=== PATIENT | female | born 1995 | race Caucasian/White ===

== ENCOUNTER 2020-09-20 16:24 | Observation (INO) | payer OTHER, SELFPAY ==
--- NOTE | 2020-09-20 16:24 | OBADM ---
This patient, JED POOL, admitted to the OB room Labor/Delivery/Recovery 105 for observation. Patient/family oriented to hospital policies and general routines including ID bracelet, bed and alarms, visiting hours, pain management, procedures, bathroom and other care routines, personal items, smoking policy, room service/diet, and visiting hours. Patient/Family are encouraged to report perceived risks to care and to ask questions if they do not understand what they are told or what they should do.
[2020-09-20 16:40] VITALS: TEMP 36.7; BMI 32.8
[2020-09-20 16:43] VITALS: BP 127/70; PULSE 75
[2020-09-20 16:45] VITALS: BP 127/74; PULSE 79
[2020-09-20 17:00] VITALS: BP 129/77; PULSE 79
[2020-09-20 17:15] VITALS: BP 123/77; PULSE 65
[2020-09-20 17:27] LABS: Add Urine Microscopic? YES; Appearance Urine Clear (Clear); Bacteria Urine Trace /hpf; Bilirubin Urine Negative (Negative); Blood Urine 1+ (Negative); Color Urine Straw (Yellow); Glucose Urine UA Negative (Negative); Ketones Urine Negative (Negative); Leukocyte Esterase Ur Negative LEU/UL (Negative); Mucus Urine Rare /lpf; Nitrate Urine Negative (Negative); Protein Urine Negative (Negative); RBC Urine 0-2 /hpf (0-2); Specific Grav Ur 1.008 (1.001-1.035); Urobilinogen Urine Negative mg/dL (<2.0); WBC Urine 0-3 /hpf
[2020-09-20 17:30] VITALS: BP 130/74; PULSE 77
--- NOTE | 2020-10-01 10:05 | PM.OBTRLD ---
OB - Triage/Final Diagnosis Evaluation Laboratory results: Laboratory Tests 09/20/20 17:18 Urine Color Straw Urine Appearance Clear Urine pH 6.0 Ur Specific [place] 1.008 Urine Protein Negative Urine Glucose (UA) Negative Urine Ketones Negative Ur Blood (Man) 1+ H Urine Nitrate Negative Urine Bilirubin Negative Urine Urobilinogen Negative Leukocyte Esterase Rfl Negative Urine RBC 0-2 Urine WBC 0-3 Urine Bacteria Trace Urine Mucus Rare Final Diagnosis (1) Vulvovaginal candidiasis: Code(s): B37.3 - Candidiasis of vulva and vagina Status: Acute
== END 2020-09-20 17:52 | disposition home or self-care (01) ==
PROVIDERS: Admitting Provider Obstetrics & Gynecology; Visit Provider Obstetrics & Gynecology
DX: O98.819 Other maternal infectious and parasitic diseases complicating pregnancy, unspecified trimester (principal); B37.3 Candidiasis of vulva and vagina; Z3A.00 Weeks of gestation of pregnancy not specified
CPT/HCPCS: 81001; 84112; G0378; G0379

== ENCOUNTER 2022-11-20 12:41 | Emergency (ER) | payer OTHER, SELFPAY ==
[2022-11-20 12:56] VITALS: BP 131/81; PULSE 81; RESP 16; TEMP 37; O2SAT 98
--- NOTE | 2022-11-20 13:50 | ED.ABDPAIN ---
HPI - Abdominal Pain General Chief Complaint: Abdominal Pain Stated Complaint: Sinus/Right Side Pain Time Seen by Provider: 11/20/22 13:10 Source: patient Mode of arrival: ambulatory Limitations: no limitations History of Present Illness HPI narrative: Mckayla is a 27-year-old female patient presenting to the clinic today with complaints of sinus congestion and right-sided upper abdominal pain. She reports that she has had symptoms for approximately 1 week. States that she has had nausea, vomiting, and diarrhea as well. States that this has gone through the house however her symptoms have lasted longer than everyone else's. States she developed right upper quadrant abdominal pain this morning. States the pain is sharp and is only painful with movement. Last bowel movement was diarrhea this morning. Last menstrual period was 12 days ago. She denies any urinary symptoms. Related Data Home Medications Medication Instructions Recorded Confirmed No Home Medications 11/20/22 11/20/22 Allergies Allergy/AdvReac Type Severity Reaction Status Date / Time No Known Allergies Allergy Verified 11/20/22 13:07 Review of Systems Review of Systems: Pertinent positives per HPI. Patient denies any fever, chills, rash, headache, visual changes, dizziness, cough, shortness of breath, chest pain, palpitations, constipation, or any urinary issues. PMFSH Comments At the time of my signature, I reviewed and agree with the nursing past medical, surgical, social, and family history. There is no relevant family history pertinent to the patient complaint. Exam Narrative: General: Well-developed, well nourished, in no apparent distress Head: Normocephalic, atraumatic Eyes: Pupils equally round and reactive to light bilaterally, EOM intact, sclera and conjunctive clear, no discharge, lids normal Ears: TMs intact and clear, ear canals clear, no drainage, grossly hearing normal. Nose: Nares patent, clear nasal discharge, no inflammation, no sinus tenderness. Mouth: Oral pharynx without lesions or masses, good dentition, MMM. Oropharynx mildly red Neck: Supple, trachea midline, no enlargement of anterior or posterior cervical nodes, no thyroid masses or goiter palpable. Cardio: Regular rate and rhythm, s1 and s2 normal, no murmur appreciated. Resp: Clear to auscultation bilaterally, no rhonchi, rales, wheezing or rubs Abdomen: Soft, nondistended, bowel sounds present all 4 quadrants, nontender to palpation, no organomegaly, no CVAT tenderness Course Course Emergency Course: Portions of this record may have been created with voice recognition software. Level of Care: Express Care Visit Vital Signs Vital signs: Vital Signs Temperature 37.0 C 11/20/22 12:56 Pulse Rate 81 11/20/22 12:56 Respiratory Rate 16 11/20/22 12:56 Blood Pressure 131/81 11/20/22 12:56 Pulse Oximetry 98 11/20/22 12:56 Oxygen Delivery Room Air 11/20/22 12:56 Temperature 37.0 C 11/20/22 12:56 Pulse Rate 81 11/20/22 12:56 Respiratory Rate 16 11/20/22 12:56 Blood Pressure 131/81 11/20/22 12:56 Pulse Oximetry 98 11/20/22 12:56 Oxygen Delivery Room Air 11/20/22 12:56 Vital signs reviewed MDM - Abdominal Pain MDM Narrative Medical decision making narrative: At the time of visit patient is resting comfortably on the exam table. Urinalysis was performed that showed trace of ketones otherwise normal. COVID, flu, strep were all negative in the clinic today. I suspect patient has viral gastroenteritis/URI/abdominal wall pain. Offered to send the patient to the ED to determine other etiology of abdominal pain and she declined at this time. Supportive measures were discussed with the patient she voiced understanding discharge instructions and agrees to treatment plan. Lab Data Labs: Lab Results 11/20/22 Range/Units 13:30 POC SARS CoV-2 Ag Negative (Negative) Influenza A Screen Negative
== END 2022-11-20 13:55 | disposition home or self-care (01) ==
PROVIDERS: Emergency Provider Nurse Practitioner Family; PCP Family Medicine Adolescent Medicine
DX: K52.9 Noninfective gastroenteritis and colitis, unspecified (principal); J06.9 Acute upper respiratory infection, unspecified; R10.11 Right upper quadrant pain; Z20.822 Contact with and (suspected) exposure to COVID-19
CPT/HCPCS: 81003; 87081; 87426; 87804; 87880; 99213; C9803; G0463

== ENCOUNTER 2022-12-14 10:03 | Emergency (ER) | payer OTHER, SELFPAY ==
[2022-12-14 10:11] VITALS: BP 115/68; PULSE 75; RESP 18; TEMP 36.7; O2SAT 100
--- NOTE | 2022-12-14 10:24 | ED.EYEPROB ---
HPI - Eye Problem General Chief complaint: Eye Problems Stated complaint: Eyes Irritation Time Seen by Provider: 12/14/22 10:15 Source: patient Mode of arrival: ambulatory Limitations: no limitations History of Present Illness HPI Narrative: Mckayla is a 27-year-old female patient presenting to the clinic today with complaints bilateral eye irritation. She reports that the right eye has been bothering her x2 days and now it is spreading to the left eye. Her visual acuity is within normal limits in the clinic today. She denies any known of any foreign body or injury to the eyes. Is having some yellow mucopurulent discharge coming from the eye. Has tried taking her sister's polymyxin eye drops without relief Related Data Allergies Allergy/AdvReac Type Severity Reaction Status Date / Time No Known Allergies Allergy Verified 12/14/22 10:10 Review of Systems Review of Systems: Pertinent positives per HPI. Patient denies any fever, chills, rash, headache, visual changes, dizziness, cough, runny nose, sore throat, shortness of breath, chest pain, palpitations, nausea, vomiting, diarrhea, constipation, abdominal pain, or any urinary issues. PMFSH Surgical History Surgical History History of surgery on arm left arm compound fracture Family History Family History Mother Depression Father Depression Family history of alcohol abuse Family history of thyroid disease Hypertension Grandparent Family history of alcohol abuse Grandparent Asthma Social History Social History Smoking status: Current every day smoker (vaping) Tobacco type: e-cigarettes/vaping Alcohol intake: current Alcohol use details: once every couple of weeks Substance use: never Living arrangements: with family Additional living arrangements comments: and child (age 2) Occupation/Education: occupation 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 There is no relevant family history pertinent to the patient complaint. Exam Narrative: General: Well-developed, well nourished, in no apparent distress Head: Normocephalic, atraumatic Eyes: Pupils equally round and reactive to light bilaterally, EOM intact, sclera and conjunctive injected with yellow mucopurulent discharge, right lids swollen, left lids normal Ears: TMs intact and clear, ear canals clear, no drainage, grossly hearing normal. Nose: Nares patent, no discharge, no inflammation, no sinus tenderness. Mouth: Oropharynx without lesions or masses, good dentition, MMM. Neck: Supple, trachea midline, no enlargement of anterior or posterior cervical nodes, no thyroid masses or goiter palpable. Cardio: Regular rate and rhythm, s1 and s2 normal, no murmur appreciated. Resp: Clear to auscultation bilaterally anteriorly and posteriorly, no rhonchi, rales, wheezing or rubs Course Course Emergency Course: Portions of this record may have been created with voice recognition software. Level of Care: Express Care Visit Vital Signs Vital signs: Vital Signs Temperature 36.7 C 12/14/22 10:11 Pulse Rate 75 12/14/22 10:11 Respiratory Rate 18 12/14/22 10:11 Blood Pressure 115/68 12/14/22 10:11 Pulse Oximetry 100 12/14/22 10:11 Oxygen Delivery Room Air 12/14/22 10:11 Temperature 36.7 C 12/14/22 10:11 Pulse Rate 75 12/14/22 10:11 Respiratory Rate 18 12/14/22 10:11 Blood Pressure 115/68 12/14/22 10:11 Pulse Oximetry 100 12/14/22 10:11 Oxygen Delivery Room Air 12/14/22 10:11 Vital signs reviewed MDM - Eye Problem MDM Narrative Medical decision making narrative: At the time of visit patient is resting comfor
== END 2022-12-14 10:28 | disposition home or self-care (01) ==
PROVIDERS: Emergency Provider Nurse Practitioner Family; PCP Family Medicine Adolescent Medicine
DX: H10.9 Unspecified conjunctivitis (principal); F17.290 Nicotine dependence, other tobacco product, uncomplicated
CPT/HCPCS: 99213; G0463

== ENCOUNTER 2022-12-17 09:48 | Emergency (ER) | payer OTHER, SELFPAY ==
[2022-12-17 09:56] VITALS: BP 106/76; PULSE 100; RESP 16; TEMP 36.9; O2SAT 99
--- NOTE | 2022-12-17 10:07 | ED.URI ---
HPI - URI/Sore Throat General Chief Complaint: Upper Respiratory Infection Stated Complaint: sore throat Time Seen by Provider: 12/17/22 10:08 Source: patient, RN notes reviewed and old records reviewed Mode of arrival: ambulatory Limitations: no limitations History of Present Illness HPI Narrative: 27-year-old female presents to the [facility] with complaints of sore throat for 2 days. Has tried taking cold and flu medication. States that she is concerned for strep, declined COVID and flu testing at this time Related Data Allergies Allergy/AdvReac Type Severity Reaction Status Date / Time No Known Allergies Allergy Verified 12/17/22 10:00 Review of Systems Review of Systems: All systems reviewed & are unremarkable except as noted in HPI and below Constitutional: Constitutional: Reports no additional constitutional complaints Eyes: Eyes: Reports no additional eye complaints ENT: Reports as per HPI and Reports sore throat Cardiovascular: Cardiovascular: Reports no additional cardiovascular complaints, Denies chest pain and Denies dyspnea Respiratory: Respiratory: Reports no additional respiratory complaints, Denies chest congestion, Denies cough and Denies dyspnea Gastrointestinal: Gastrointestinal: Reports no additional gastrointestinal complaints, Denies abdominal pain, Denies nausea and Denies vomiting Musculoskeletal: Musculoskeletal: Reports no additional musculoskeletal complaints Integumentary/Breasts: Skin/Breast: Reports system reviewed and no additional complaints, except as docu Neurologic: Reports system reviewed and no additional complaints, except as documented Psychiatric: Psychiatric: Reports no additional psychiatric complaints Allergic/Immunologic: Allergic/Immunologic: Reports no additional allergic/immunologic complaints [facility] Surgical History Surgical History History of surgery on arm left arm compound fracture Family History Family History Mother Depression Father Depression Family history of alcohol abuse Family history of thyroid disease Hypertension Grandparent Family history of alcohol abuse Grandparent Asthma Social History Social History Smoking status: Current every day smoker (vaping) Tobacco type: e-cigarettes/vaping Alcohol intake: current Alcohol use details: once every couple of weeks Substance use: never Living arrangements: with family Additional living arrangements comments: and child (age 2) Occupation/Education: occupation 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 There is no relevant family history pertinent to the patient complaint. Exam Const: General: cooperative, healthy appearing, comfortable, no acute distress, well developed, alert and well nourished Nutritional Appearance: well nourished Orientation/consciousness: patient oriented x3 Limitations: no limitations HENMT: Head: normal to inspection Ears: hearing grossly normal bilaterally and external ears normal Face/Nose/Sinus: Normal external nose present, Normal nares present, Normal nasal mucous membranes and turbinates present and normal facial exam Face and sinus: normal facial exam Mouth: Yes Normal oral and palatal mucosa present, Yes lip normal and Yes moist mucous membranes Throat: posterior oropharynx normal, uvula midline, abnormal tonsil bilateral erythema; no exudates, no hypertrophy and crypts, no peritonsillar masses, postnasal drainage and no uvular edema Eyes: General: appearance normal, both eyes and all related structures Alignment and Position: alignment normal Periorbital: periorbital findings normal Conjunctivae: conjunctivae normal Pupils: Equ
== END 2022-12-17 10:29 | disposition home or self-care (01) ==
PROVIDERS: Emergency Provider Nurse Practitioner; PCP Family Medicine Adolescent Medicine
DX: J02.9 Acute pharyngitis, unspecified (principal); J06.9 Acute upper respiratory infection, unspecified; F12.90 Cannabis use, unspecified, uncomplicated
CPT/HCPCS: 87081; 87880; 99213; G0463